=== PATIENT | male | born 1995 | race Caucasian/White ===

== ENCOUNTER 2018-02-23 15:22 | Emergency (ER) | payer OTHER ==
[2018-02-23 16:35] LABS: ABS Basophils 0.1 10^3/ul (0-0.2); ABS Eosinophils 0.1 10^3/ul (0-0.6); ABS Lymphocytes 1.2 10^3/ul (1.0-4.8); ABS Monocytes 0.4 10^3/ul (0-0.8); ABS Neutrophils 4.8 10^3/ul (1.5-7.7); ABS Nucleated RBC 0 10^3/ul; Eosinophil % 1.9 %; Hematocrit 41 % (42-52); Hemoglobin 13.9 g/dl (14.0-18.0); Lymphocyte % 18.5 %; Mean Corpuscular HGB Conc 34 g/dl (31-36); Mean Corpuscular Hemoglobin 31 pg (27-31); Mean Corpuscular Volume 90 fL (80-94); Mean Platelet Volume 7.4 fL (7.4-10.4); Nucleated Red Blood Cells % 0; Platelet Count 295 10^3/ul (150-450); Red Blood Count 4.52 10^6/ul (4.00-5.40); Red Cell Distribution Width 12 % (10.5-15); White Blood Count 6.7 10^3/ul (3.5-10.8)
[2018-02-23 16:59] LABS: EGFR Non-African American 101.6 (>60)
== END 2018-02-23 17:18 | disposition left against medical advice (07) ==
LOC: EDSEX → ED 15:22
DX: R51 Headache (principal); R07.89 Other chest pain; Z53.21 Procedure and treatment not carried out due to patient leaving prior to being seen by health care provider
CPT/HCPCS: 36415; 80053; 84443; 84702; 85025; 86140; 93005; 99281

== ENCOUNTER 2018-04-24 22:09 | Emergency (ER) | payer OTHER ==
[2018-04-24 22:19] VITALS: BP 131/79
[2018-04-24 23:16] LABS: ABS Basophils 0.1 10^3/ul (0-0.2); ABS Eosinophils 0.2 10^3/ul (0-0.6); ABS Lymphocytes 1.4 10^3/ul (1.0-4.8); ABS Monocytes 0.5 10^3/ul (0-0.8); ABS Neutrophils 4.9 10^3/ul (1.5-7.7); ABS Nucleated RBC 0 10^3/ul; Eosinophil % 2.9 %; Hematocrit 44 % (42-52); Hemoglobin 14.9 g/dl (14.0-18.0); Lymphocyte % 19.7 %; Mean Corpuscular HGB Conc 34 g/dl (31-36); Mean Corpuscular Hemoglobin 31 pg (27-31); Mean Corpuscular Volume 92 fL (80-94); Mean Platelet Volume 7.8 fL (7.4-10.4); Nucleated Red Blood Cells % 0.1; Platelet Count 293 10^3/ul (150-450); Red Blood Count 4.83 10^6/ul (4.00-5.40); Red Cell Distribution Width 14 % (10.5-15); White Blood Count 7.1 10^3/ul (3.5-10.8)
[2018-04-24 23:33] LABS: Calcium 9.9 mg/dL (8.6-10.3); EGFR African American 101.3 (>60); EGFR Non-African American 83.7 (>60); Globulin 2.5 g/dL (2-4); Potassium 4.1 mmol/L (3.5-5.0); Total Bilirubin 0.5 mg/dL (0.2-1.0); Total Protein 7.5 g/dL (6.4-8.9)
== END 2018-04-24 23:15 | disposition left against medical advice (07) ==
LOC: ED 22:09
DX: R11.2 Nausea with vomiting, unspecified (principal); R10.9 Unspecified abdominal pain; Z53.21 Procedure and treatment not carried out due to patient leaving prior to being seen by health care provider
CPT/HCPCS: 36415; 80053; 83690; 85025; 99281

== ENCOUNTER 2018-07-22 17:15 | Emergency (ER) | payer OTHER ==
--- NOTE | 2018-07-22 20:12 | ED ---
Abdominal Pain/Male - HPI Summary HPI Summary: Patient complains of possible hernia and left-sided groin, and anxiety about same. States he found a lump on the left side of his groin today. Denies fever , cough, sore throat, CP, SOB, N/V/D, abdominal pain, change in urine, change in BM, penile symptoms, testicular symptoms. Medical history is none. - History of Current Complaint Chief Complaint: EDAbdPain Stated Complaint: ABD PAIN/POSS HERNIA/ PANICK ATTACK PER PT Time Seen by Provider: 07/22/18 20:01 Hx Obtained From: Patient Onset/Duration: Sudden Onset Timing: Intermittent Severity Initially: Mild Severity Currently: Mild Pain Intensity: 3 Pain Scale Used: 0-10 Numeric Location: Discrete At: LLQ Radiates: No Character: Dull Aggravating Factor(s): Nothing Alleviating Factor(s): Nothing Associated Signs And Symptoms: Positive: Negative - Allergies/Home Medications Allergies/Adverse Reactions: Allergies Allergy/AdvReac Type Severity Reaction Status Date / Time No Known Allergies Allergy Verified 07/22/18 17:20 PMH/Surg Hx/FS Hx/Imm Hx Endocrine/Hematology History: Denies: Hx Anticoagulant Therapy Cardiovascular History: Denies: Hx Pacemaker/ICD History: Denies: Hx Dialysis Sensory History: Denies: Hx Eye Prosthesis Opthamlomology History: Denies: Hx Legally Blind EENT History: Denies: Hx Deafness Neurological History: Denies: Hx Dementia Psychiatric History: Denies: Hx Autism Infectious Disease History: No Infectious Disease History: Denies: Traveled Outside the [place] in Last 30 Days - Social History Occupation: Student Alcohol Use: Occasionally Hx Substance Use: No Smoking Status (MU): Never Smoked Tobacco Review of Systems Constitutional: Negative Eyes: Negative ENT: Negative Cardiovascular: Negative Respiratory: Negative Gastrointestinal: Other Genitourinary: Negative Musculoskeletal: Negative Skin: Negative Neurological: Negative Psychological: Normal All Other Systems Reviewed And Are Negative: Yes Physical Exam - Summary Physical Exam Summary: Firm nodule palpated in left inguinal crease consistent with lymphadenopathy. No hernia or reducible mass noted. Abdomen soft nontender. Normal-appearing genitals with no erythema, or tenderness to palpation. Triage Information Reviewed: Yes Vital Signs On Initial Exam: Initial Vitals Temp Pulse Resp BP Pulse Ox 98.0 F 116 19 116/94 100 07/22/18 17:17 07/22/18 17:17 07/22/18 17:17 07/22/18 17:17 07/22/18 17:17 Vital Signs Reviewed: Yes Appearance: Positive: Well-Appearing Skin: Positive: Warm Head/Face: Positive: Normal Head/Face Inspection Eyes: Positive: Normal Neck: Positive: Supple Respiratory/Lung Sounds: Positive: Clear to Auscultation Cardiovascular: Positive: Normal Abdomen Description: Positive: Nontender Male Genital Exam: Positive: Normal Genitalia Musculoskeletal: Positive: Normal Neurological: Positive: Normal Psychiatric: Positive: Normal AVPU Assessment: Alert - Raj Coma Scale Best Eye Response: 4 - Spontaneous Best Motor Response: 6 - Obeys Commands Best Verbal Response: 5 - Oriented Coma Scale Total: 15 Diagnostics - Vital Signs Vital Signs Temp Pulse Resp BP Pulse Ox 07/22/18 17:17 98.0 F 116 19 116/94 100 - Laboratory Lab Statement: Any lab studies that have been ordered have been reviewed, and results considered in the medical decision making process. Abdominal Pain Male Course/Dx - Course Course Of Treatment: Patient complains of possible hernia and left-sided groin, and anxiety about same. States he found a lump on the left side of his groin today. Denies fever, cough, sore throat, CP, SOB, N/V/D, abdominal pain, change in urine, change in BM, penile symptoms, testicular symptoms. Medical history is none. Physical exam:Firm nodule palpated in left inguinal crease consistent with lymphadenopathy. No hernia or reducible mass noted. Abdomen soft nontender. Normal-appearing genitals with no erythema, or tenderness to palpation. Vital signs within normal limits. - Diagnoses Provider Diagnoses: Inguinal lymphadenopathy Discharge - Sign-Out/Discharge Documenting (check all that apply): Patient Departure Patient Received Moderate/Deep Sedation with Procedure: No - Discharge Plan Condition: Stable Disposition: HOME Patient Education Materials: Lymphadenopathy (ED) Referrals: No Primary Care Phys,NOPCP [Primary Care Provider] - Additional Instructions: Ibuprofen for pain. Follow-up with primary care. Return to the ED for any new or worsening symptoms - Billing Disposition and Condition Condition: STABLE Disposition: Home
[2018-07-22 20:22] VITALS: BP 122/71
== END 2018-07-22 20:20 | disposition home or self-care (01) ==
LOC: ED 17:15
DX: R59.0 Localized enlarged lymph nodes (principal)
CPT/HCPCS: 99282

== ENCOUNTER 2018-07-31 11:04 | Emergency (ER) | payer OTHER ==
--- NOTE | 2018-07-31 11:20 | ED ---
GI/ HPI - HPI Summary HPI Summary: This patient is a 23 year old M presenting to ED with a chief complaint of penile swelling with pain since 07/28/18. The patient rates the pain 5/10 in severity. Symptoms aggravated by nothing. Symptoms alleviated by nothing. Patient denies difficulty urinating, penile discharge, and testicular pain. Patient reports he is sexually active with only 1 person. Patient does not use any protection. - History of Current Complaint Chief Complaint: EDUrogenitalProblems Time Seen by Provider: 07/31/18 11:16 Stated Complaint: GENITALIA PROBLEM PER PT Hx Obtained From: Patient Onset/Duration: Started Days Ago - 07/28/18, Still Present Timing: Constant, Lasting Days Severity: Moderate Current Severity: Moderate Pain Intensity: 5 Additional Locations for Males: Penis Associated Signs and Symptoms: Positive: Other: - penile swelling with pain; denies difficulty urinating and testicular pain. Negative: Discharge Additional Signs & Symptoms: Positive: Penile Swelling. Negative: Penile Discharge Aggravating Factor(s): Nothing Alleviating Factor(s): Nothing - Allergy/Home Medications Allergies/Adverse Reactions: Allergies Allergy/AdvReac Type Severity Reaction Status Date / Time No Known Allergies Allergy Verified 07/31/18 11:09 Home Medications: Home Medications Cholecalciferol TAB* [Vitamin D TAB*] 2,000 unit PO DAILY 07/31/18 [History Confirmed 07/31/18] PMH/Surg Hx/FS Hx/Imm Hx Endocrine/Hematology History: Denies: Hx Anticoagulant Therapy Cardiovascular History: Denies: Hx Pacemaker/ICD History: Denies: Hx Dialysis Sensory History: Denies: Hx Eye Prosthesis, Hx Legally Blind, Hx Deafness Opthamlomology History: Denies: Hx Eye Prosthesis, Hx Legally Blind Neurological History: Denies: Hx Dementia Psychiatric History: Denies: Hx Autism Infectious Disease History: No Infectious Disease History: Denies: Traveled Outside the [place] in Last 30 Days - Social History Alcohol Use: Occasionally Hx Substance Use: No Substance Use Type: Reports: None Smoking Status (MU): Never Smoked Tobacco Review of Systems Negative: Fever Positive: pain - penile swelling with pain, other - denies difficulty urinating and testicular pain. Negative: discharge All Other Systems Reviewed And Are Negative: Yes Physical Exam - Summary Physical Exam Summary: VITAL SIGNS: Reviewed. GENERAL: Patient is a well-developed and nourished MALE who is lying comfortable in the stretcher. Patient is not in any acute respiratory distress. HEAD AND FACE: No signs of trauma. No ecchymosis, hematomas or skull depressions. No sinus tenderness. EYES: PERRLA, EOMI x 2, No injected conjunctiva, no nystagmus. EARS: Hearing grossly intact. Ear canals and tympanic membranes are within normal limits. MOUTH: Oropharynx within normal limits. NECK: Supple, trachea is midline, no adenopathy, no JVD, no carotid bruit, no c- spine tenderness, neck with full ROM. CHEST: Symmetric, no tenderness at palpation LUNGS: Clear to auscultation bilaterally. No wheezing or crackles. CVS: Regular rate and rhythm, S1 and S2 present, no murmurs or gallops appreciated. ABDOMEN: Soft, non-tender. No signs of distention. No rebound no guarding, and no masses palpated. Bowel sounds are normal. EXTREMITIES: FROM in all major joints, no edema, no cyanosis or clubbing. NEURO: Alert and oriented x 3. No acute neurological deficits. Speech is normal and follows commands. SKIN: Dry and warm : Penis is uncircumcised. Both testicles are descending. No tenderness in the testicles. Erythema and tenderness along the shaft. No masses are appreciated. Positive cremasteric reflex. Triage Information Reviewed: Yes Vital Signs On Initial Exam: Initial Vitals Temp Pulse Resp BP Pulse Ox 97.9 F 75 16 137/78 98 07/31/18 11:07 07/31/18 11:07 07/31/18 11:07 07/31/18 11:07 07/31/18 11:07 Vital Signs Reviewed: Yes Diagnostics - Vital Signs Vital Signs Temp Pulse Resp BP Pulse Ox 07/31/18 11:07 97.9 F 75 16 137/78 98 - Laboratory Result Diagrams: 07/31/18 13:24 07/31/18 13:24 Lab Statement: Any lab studies that have been ordered have been reviewed, and results considered in the medical decision making process. Re-Evaluation - Re-Evaluation First Eval Re-Evaluation Time: 12:42 Comment: Discussed consult with Dr. Shepard and about plan for transfer. Patient understands and agrees with this plan. The patient states he does not want to travel by ambulance to [facility]. Second Eval Re-Evaluation Time: 13:22 Comment: Discussed consult with [facility] with the patient. GIGU Course/Dx - Course Assessment/Plan: This is a 23-year-old male who presents to the emergency department with chief complaint of having pain in his penis. Patient had these symptoms for the last couple days. In the physical exam the patient has an induration area on the dorsal aspect of the penis and also erythema in the same area. The pain is not circumcised and both testicles are descended. Patient reports tenderness on this area at palpation. There is no vesicular lesions in the area. There is no purulent or white-darius discharge on the penis. The patient is sexually active with only one person, he denies any STDs. Blood work without any significant abnormality. Urinalysis is negative for UTI. I discussed the case with the transfer center and the patient was accepted for transfer to Dr. Sifuentes ER physician at [facility]. The patient declined ambulance transfer however he was given the packet for transfer and he will go directly to the emergency department. Patient is hemodynamically stable alert and oriented 3. - Diagnoses Differential Diagnoses - Male: Other - thrombophlebitis Provider Diagnoses: Thrombophlebitis - Physician Notifications Discussed Care Of Patient With: Yoni Shepard Time Discussed With Above Provider: 12:30 Instructed by Provider To: Other - Consulted Dr. 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 Spoke with the transfer center at [facility] at [phone] about the patients case and they will call us back. Spoke with the transfer center at [phone] and they say the accepting physician is Dr. Sifuentes in the ED. Told them that the patient will drive himself there. Discharge - Sign-Out/Discharge Documenting (check all that apply): Patient Departure - transfer Patient Received Moderate/Deep Sedation with Procedure: No - Discharge Plan Condition: Stable Disposition: TRANS HIGHER LVL OF CARE FAC Referrals: [facility] [address] [Outside] - Billing Disposition and Condition Condition: STABLE Disposition: Trans Higher Lvl of Care Fac - Attestation Statements Document Initiated by Scribe: Yes Documenting Scribe: Dk García Provider For Whom Scribe is Documenting (Include Credential): Sudeep Walter MD Scribe Attestation: IDk, scribed for Sudeep Walter MD on 07/31/18 at 1421. Scribe Documentation Reviewed: Yes Provider Attestation: The documentation as recorded by the scribe, Dk García accurately reflects the service I personally performed and the decisions made by me, Sudeep Walter MD Status of Scribe Document: Viewed
[2018-07-31] MEDS ORDERED: cefTRIAXone(*) 2 GM in NS 0.9% 100 ML* 100 ML IVPB ONE (12:34)
[2018-07-31 12:54] LABS: Urine Appearance Cloudy; Urine Bilirubin Negative (Negative); Urine Blood Negative (Negative); Urine Color Amber; Urine Glucose Negative (Negative); Urine Ketones Negative (Negative); Urine Nitrite Negative (Negative); Urine Protein Negative (Negative); Urine Specific Gravity 1.017 (1.010-1.030); Urine Urobilinogen Negative (Negative)
[2018-07-31 13:42] VITALS: BP 113/77
[2018-07-31 13:56] LABS: ABS Eosinophils 0.2 10^3/ul (0-0.6); ABS Lymphocytes 0.9 10^3/ul (1.0-4.8); ABS Monocytes 0.7 10^3/ul (0-0.8); ABS Neutrophils 4.1 10^3/ul (1.5-7.7); Eosinophil % 3.2 %; Hematocrit 48 % (42-52); Lymphocyte % 14.8 %; Mean Corpuscular HGB Conc 33 g/dL (31-36); Mean Corpuscular Hemoglobin 30 pg (27-31); Mean Corpuscular Volume 91 fL (80-94); Mean Platelet Volume 7.3 fL (7.4-10.4); Nucleated Red Blood Cells % 0.2; Platelet Count 262 10^3/uL (150-450); Red Blood Count 5.29 10^6 /uL (4.18-5.48); Red Cell Distribution Width 14 % (10.5-15); White Blood Count 5.9 10^3/uL (3.5-10.8)
[2018-07-31 14:06] LABS: Albumin 4.7 g/dL (3.2-5.2); Albumin/Globulin Ratio 1.5 (1-3); BUN/Creatinine Ratio 9.9 (8-20); EGFR African American 126.1 (>60); EGFR Non-African American 104.2 (>60); Globulin 3.1 g/dL (2-4); Potassium 4.4 mmol/L (3.5-5.0); Total Protein 7.8 g/dL (6.4-8.9)
[2018-08-03 13:14] LABS: Neisseria gonorrhoeae (GC) RNA Negative (Negative)
== END 2018-07-31 14:39 | disposition short-term general hospital (02) ==
LOC: ED 11:04
DX: I80.8 Phlebitis and thrombophlebitis of other sites (principal)
CPT/HCPCS: 36415; 80053; 81003; 83605; 85025; 87491; 87591; 96360; 99282; J0696